=== PATIENT | female | born 1985 | race Hispanic/Latino ===

== ENCOUNTER 2023-10-26 11:29 | Emergency (ER) | payer SELFPAY ==
[2023-10-26 11:59] VITALS: BP 127/94; PULSE 86; RESP 16; TEMP 37; O2SAT 100
--- NOTE | 2023-10-26 12:25 | ED.EYEPROB ---
HPI - Eye Problem General Chief complaint: Eye Problems Stated complaint: Eye problems Time Seen by Provider: 10/26/23 12:26 Source: patient, RN notes reviewed and old records reviewed Mode of arrival: ambulatory Limitations: language barrier (family here to translate) History of Present Illness HPI Narrative: 38 year old female presents to [facility] care with complaints of bilateral eye burning after accidently putting her contact lenses in [place] water to soak overnight and then putting them in her eyes this morning. Patient hurriedly took out contacts and put redness clear eye drops in her eyes which made burning worse. patient reports that she washed her eyes out at home with water but continue burning to eyes so came to clinic. Patient is predominantly Thai speaking has family members with her to help translate.Patient denies any blurry vision does not have contact lens in did not bring glasses. Visual acuity 20/50 bilaterally without correction. chief complaint: eye redness and other (burning sensation) Onset (ago): hour(s) (this morning) Eye Symptoms: burning and redness Treatments Prior to Arrival: other (washed eyes out with tap water) Related Data Home Medications Medication Instructions Recorded Confirmed glipizide 5 mg tablet 5 mg PO BID 10/26/23 10/26/23 levothyroxine 75 mcg tablet 75 mcg PO DAILY 10/26/23 10/26/23 Allergies Allergy/AdvReac Type Severity Reaction Status Date / Time No Known Drug Allergies Allergy Unknown Other Verified 10/26/23 12:29 Review of Systems Review of Systems: CONSTITUTIONAL: Denies fever, chills, or sweats. EYES: Denies visual changes. Reports redness,, irritation, burning to bilateral eye ENT: Denies rhinorrhea, congestion, sore throat, or otalgia. CARDIOVASCULAR: Denies chest pain, palpitations, or edema. RESPIRATORY: Denies cough or dyspnea. SKIN: Denies rash or itching. NEUROLOGIC: Denies headache All systems reviewed & are unremarkable except as noted in HPI and below PMFSH Past Medical History Medical History (Updated 10/27/23 @ 10:03 by Joelle Islas NP) Diabetes Hypothyroidism Social History Social History (Updated 10/27/23 @ 10:03 by Joelle Islas NP) Smoking status: Never smoker Alcohol intake: unknown Substance use type: does not use Living arrangements: with family Gender identity (if verbalized by the patient): Female Comments At time of signature, agree with nursing past medical, surgical, social and family history. There is no relevant family history pertinent to the presenting complaint Exam Narrative: GENERAL: Well-appearing, well-nourished, and in no acute distress. HEAD: Normocephalic, atraumatic. EYES: PERRLA and EOMI. Upper and lower eyelids unremarkable. No periorbital cellulitis noted. Sclera red with increased watering, no sharp pain or change in visual acuity. ENT: Nares clear, no rhinorrhea or epistaxis. Mucous membranes moist. NECK: Supple. no lymphadenopathy CHEST: Clear to auscultation. No respiratory distress.SAO2 100% on room air HEART: Regular rate and rhythm. No murmur heard. Normal peripheral pulses SKIN: Warm, dry, no rash. NEURO: No focal deficits. Alert and oriented x3.anxious Course Course Emergency Course: Patient is aware of diagnosis, understands and agrees to treatment plan. Anticipatory guidance given. Patient agrees to follow-up as directed and is aware of reasons to seek care at the emergency department. Portions of this record may have been created with voice recognition software Level of Care: Express Care Visit Vital Signs Vital signs: Vital Signs Temperature 37.0 C 10/26/23 11:59 Pulse Rate 86 10/26/23 11:59 Respiratory Rate 16 10/26/23 11:59 Blood Pressure 127/94 H 10/26/23 11:59 Pulse Oximetry 100 10/26/23 11:59 Temperature 37.0 C 10/26/23 11:59 Pulse Rate 86 10/26/23 11:59 Respiratory Rate 16 10/26/23 11:59 Blood Pressure 127/94 H 10/26
== END 2023-10-26 12:54 | disposition home or self-care (01) ==
PROVIDERS: Emergency Provider Registered Nurse
DX: H57.89 Other specified disorders of eye and adnexa (principal); E03.9 Hypothyroidism, unspecified; E11.9 Type 2 diabetes mellitus without complications; Z79.899 Other long term (current) drug therapy
CPT/HCPCS: 99213; A9270; G0463